=== PATIENT | male | born 2000 | race Caucasian/White ===

== ENCOUNTER 2019-08-06 14:50 | Emergency (ER) | payer MEDICAID ==
[~2019-08-06] VITALS: Ht 167.6 cm; Wt 75.0 kg
[2019-08-06] MEDS ORDERED: IBUPROFEN 600MG TABLET PO ONE (20:15)
[2019-08-06] MEDS ORDERED: HYDROCODONE/ACETAMINOPHEN 5/325MG TABLET PO ONE (20:15)
[2019-08-06 22:08] VITALS: BP 132/82
== END 2019-08-06 22:09 | disposition home or self-care (01) ==
LOC: ER 14:50
DX: S39.012A Strain of muscle, fascia and tendon of lower back, initial encounter (principal); S70.02XA Contusion of left hip, initial encounter; V49.88XA Car occupant (driver) (passenger) injured in other specified transport accidents, initial encounter; Y93.89 Activity, other specified; Y92.89 Other specified places as the place of occurrence of the external cause; Y99.8 Other external cause status
CPT/HCPCS: 72131; 73522; 99284